=== PATIENT | female | born 1985 | race Caucasian/White ===

== ENCOUNTER 2021-12-17 09:31 | Outpatient (CLI) | payer OTHER | END 2021-12-17 09:32 | disposition home or self-care (01) | LOC: RAD 09:31 | PROVIDERS: ATTEND Advanced Practice Midwife | DX: Z31.9 Encounter for procreative management, unspecified (principal); Z32.00 Encounter for pregnancy test, result unknown | CPT/HCPCS: 36415; 58340; 74740; 84702 ==